=== PATIENT | female | born 1990 | race Two or more races ===

== ENCOUNTER → 2022-07-12 | Outpatient (CLI) | payer BC | END | disposition home or self-care (01) | LOC: US 14:19 | PROVIDERS: ATTEND Obstetrics & Gynecology | DX: Z34.92 Encounter for supervision of normal pregnancy, unspecified, second trimester (principal); Z3A.21 21 weeks gestation of pregnancy | CPT/HCPCS: 76805 ==

== ENCOUNTER 2022-10-28 12:55 | Observation (INO) | payer BC ==
[~2022-10-28] VITALS: Ht 157.5 cm; Wt 73.5 kg
[2022-10-28] MEDS ORDERED: PNV1TABL76 MT (14:44)
== END 2022-10-28 15:00 | disposition home or self-care (01) ==
LOC: 8 EST LDRP 12:55
PROVIDERS: ADMIT Obstetrics & Gynecology; ATTEND Obstetrics & Gynecology
DX: O36.8390 Maternal care for abnormalities of the fetal heart rate or rhythm, unspecified trimester, not applicable or unspecified (principal); Z3A.37 37 weeks gestation of pregnancy
CPT/HCPCS: 59025; 76805; 76818; G0378; 99281

== ENCOUNTER 2022-11-04 08:59 | Inpatient (IN) | payer BC ==
[~2022-11-04] VITALS: Ht 157.5 cm; Wt 72.6 kg
[~2022-11-04 08:59] MED LIST: PNV1TABL76 MT
[2022-11-04] MEDS ORDERED: METHYLERGONOVINE MALEATE 0.2 MG/ML IM PRN (11:00)
[2022-11-04] MEDS ORDERED: CARBOPROST TROMETHAMINE 250 MCG/ML AMPUL IM PRN (11:00)
[2022-11-04] MEDS ORDERED: LACTATED RINGERS 1,000 ML IV SCH ×2 (11:00→17:45)
[2022-11-04] MEDS ORDERED: MISOPROSTOL 100MCG TABLET RC PRN (11:00)
[2022-11-04] MEDS ORDERED: NALOXONE HCL 0.4 MG/ML 1ML VIAL IM PRN (11:00)
[2022-11-04] MEDS ORDERED: RHO(D) IMMUNE GLOBULIN 300 MCG/SYR IM ONE (11:00)
[2022-11-04 11:29] LABS: MEAN CORPUSCULAR VOLUME 65.2 fL (81.0-99.0)
[2022-11-04 11:31] LABS: HEMATOCRIT. 28.2 % (36.0-48.0); MEAN CORPUSCULAR HEMOGLOBIN 20.9 pg (28.0-32.0); MEAN PLATELET VOLUME 9.6 fl (7.4-10.4); PLATELET 264 x1000/uL (130-400); RED BLOOD CELL COUNT 4.32 mill/uL (4.2-5.4); RED CELL DISTRIBUTION WIDTH 15.8 % (11.6-14.6)
[2022-11-04 11:41] LABS: INR 0.9; PARTIAL THROMBOPLASTIN TIME 24.8 sec (23.4-31.0); PROTHROMBIN TIME 9.8 sec (9.6-11.0)
[2022-11-04] MEDS ORDERED: MORPHINE SULFATE/PF 1MG/ML 10ML AMP ONE (13:43)
[2022-11-04] MEDS ORDERED: OXYTOCIN 10 UNITS/ML 1ML ONE (13:59)
[2022-11-04] MEDS ORDERED: KETOROLAC 60MG/2ML VIAL IM ONE (14:00)
[2022-11-04] MEDS ORDERED: DEXAMETHASONE 4MG/ML 1ML VIAL ONE (14:00)
[2022-11-04] MEDS ORDERED: ONDANSETRON HCL 4MG/2ML INJ ONE (14:00)
[2022-11-04] MEDS ORDERED: CEFAZOLIN SODIUM 1000MG/VIAL ONE (14:00)
[2022-11-04 14:13] LABS: HEPATITIS B SURFACE ANTIGEN NEGATIVE
[2022-11-04 14:17] LABS: CLARITY URINE CLOUDY (CLEAR); COLOR URINE YELLOW (YELLOW); KETONES URINE NEGATIVE (NEGATIVE); LEUKOCYTE ESTERASE URINE TRACE (NEGATIVE); NITRITE URINE NEGATIVE (NEGATIVE); OCCULT BLOOD URINE NEGATIVE (NEGATIVE); PH URINE 6.5 (4.5-8.0); PROTEIN URINE NEGATIVE (NEGATIVE); SPECIFIC GRAVITY URINE 1.019 (1.005-1.030); UROBILINOGEN URINE 0.2 E.U./dL (0.2-1.0)
[2022-11-04] MEDS ORDERED: MORPHINE SULFATE 2 MG/ML CPJ (NOT FOR IM USE) IV PRN (14:45)
[2022-11-04] MEDS ORDERED: NALOXONE HCL 0.4 MG/ML 1ML VIAL IV PRN (14:45)
[2022-11-04] MEDS ORDERED: FENTANYL CITRATE/PF 50MCG/ML 2ML VIAL IV PRN (14:45)
[2022-11-04 15:01] LABS: *AMPHETAMINES SCREEN URINE NEGATIVE (NEGATIVE); *BARBITURATES SCREEN URINE NEGATIVE (NEGATIVE); *BENZODIAZEPINES SCREEN URINE NEGATIVE (NEGATIVE); *COCAINE SCREEN URINE NEGATIVE (NEGATIVE); CANNABINOID URINE SCREEN NEGATIVE (NEGATIVE); METHADONE URINE SCREEN NEGATIVE (NEGATIVE); OPIATES URINE SCREEN NEGATIVE (NEGATIVE); PHENCYCLIDINE URINE SCREEN NEGATIVE (NEGATIVE)
[2022-11-04] MEDS ORDERED: IBUPROFEN 800MG TABLET PO PRN (16:00)
[2022-11-04] MEDS ORDERED: OXYTOCIN 30 UNITS/500ML NS PMX 500 ML IV SCH (16:00)
[2022-11-04] MEDS ORDERED: HYDROCODONE/ACETAMINOPHEN 5/325MG TABLET PO PRN (16:00)
[2022-11-04] MEDS ORDERED: ACETAMINOPHEN WITH CODEINE 300/30MG TABLET PO PRN (16:00)
[2022-11-04] MEDS ORDERED: LANOLIN OINT 7GM TUBE TOP PRN (16:00)
[2022-11-04] MEDS ORDERED: RHO(D) IMMUNE GLOBULIN 300 MCG/SYR IM PRN (16:00)
[2022-11-04] MEDS ORDERED: IBUPROFEN 400MG TABLET PO PRN (16:00)
[2022-11-04] MEDS ORDERED: HEMORRHOIDAL SUPP PR PRN (16:00)
[2022-11-04] MEDS ORDERED: ONDANSETRON HCL 4MG/2ML INJ IV PRN (16:00)
[2022-11-04] MEDS ORDERED: DIPHENHYDRAMINE 25MG CAPSULE PO PRN (16:00)
[2022-11-04 18:00] VITALS: BP 102/54
[2022-11-04 18:09] LABS: PLATELET ESTIMATE NORMAL
[2022-11-04] MEDS: OXYTOCIN 30 UNITS/500ML NS PMX 500 ML IV SCH ×2 (18:18→22:38)
[2022-11-04 18:30] VITALS: BP 105/57
[2022-11-04] MEDS ORDERED: INFLUENZA VACCINE 05/PF 0.5 ML SYRINGE IM ONE (19:00)
[2022-11-04 20:00] VITALS: BP 107/70
[2022-11-04] MEDS ORDERED: KETOROLAC 30MG/ML VIAL IV PRN (22:00)
[2022-11-04] MEDS: SIMETHICONE 80MG TABLET CHEW PO SCH (22:02)
[2022-11-04] MEDS: DOCUSATE SODIUM 100MG CAPSULE PO SCH (22:02)
[2022-11-05 00:05] VITALS: BP 104/64
[2022-11-05 04:00] VITALS: BP 100/62
[2022-11-05 06:57] LABS: BASOPHILS % 0.2 % (0.0-2.0); EOSINOPHILS % 0.2 % (0.0-5.0); HEMATOCRIT. 26.5 % (36.0-48.0); HEMOGLOBIN. 8.4 g/dL (12.0-16.0); MEAN CORPUSCULAR HEMOGLOBIN 20.4 pg (28.0-32.0); MEAN CORPUSCULAR VOLUME 64.6 fL (81.0-99.0); MEAN PLATELET VOLUME 9.4 fl (7.4-10.4); MONOCYTES % 6.5 % (2.0-8.0); NEUTROPHILS % 79.1 % (40.0-76.0); PLATELET 245 x1000/uL (130-400); RED CELL DISTRIBUTION WIDTH 15.6 % (11.6-14.6)
[2022-11-05 07:40] VITALS: BP 105/69
[2022-11-05] MEDS: FERROUS SULFATE 325MG TABLET PO SCH ×3 (08:19→17:45)
[2022-11-05] MEDS: MAGNESIUM/ALUMINUM HYDROXIDE/SIMETHICONE 30ML UDC PO SCH ×4 (08:19→21:07)
[2022-11-05] MEDS: SIMETHICONE 80MG TABLET CHEW PO SCH ×4 (08:20→21:08)
[2022-11-05] MEDS ORDERED: PRENATAL VIT/FE FUMARATE/FA TABLET PO SCH (09:00)
[2022-11-05 15:45] VITALS: BP 100/64
[2022-11-05 20:00] VITALS: BP 103/72
[2022-11-05] MEDS: DOCUSATE SODIUM 100MG CAPSULE PO SCH (21:08)
[2022-11-06 03:00] VITALS: BP 119/83
[2022-11-06] MEDS ORDERED: IBUP-2030 PO (04:36)
[2022-11-06 08:00] VITALS: BP 120/76
== END 2022-11-06 11:30 | disposition home or self-care (01) | DRG 788 ==
LOC: OBSVTOIN 08:59 → 8 EST LDRP 08:59 → 8EST 17:42
PROVIDERS: ADMIT Obstetrics & Gynecology; ATTEND Obstetrics & Gynecology
PROC: 10D00Z1 Extraction of Products of Conception, Low, Open Approach (ICD-10-PCS; principal; 2022-11-04)
DX: O34.211 Maternal care for low transverse scar from previous cesarean delivery (principal); Z20.822 Contact with and (suspected) exposure to COVID-19; Z37.0 Single live birth; Z3A.39 39 weeks gestation of pregnancy
CPT/HCPCS: 36415; 80305; 81003; 85025; 86592; 86703; 86762; 86850; 86900; 87340; 87426; 88307; 90686; 99281; J0690; J1100; J1885; J2274; J2405; J7120; A4315; J2590